=== PATIENT | male | born 1990 ===

== ENCOUNTER 2018-03-11 16:05 | Emergency (ER) | payer SELFPAY ==
[2018-03-11 16:14] VITALS: BP 149/90; PULSE 90; RESP 18; TEMP 98.3; O2SAT 99
[2018-03-11] MEDS ORDERED: Alum-Mag Hydrox-Simethicone Susp (30 mL) PO STA (16:48)
--- NOTE | 2018-03-11 16:49 | C.PDOC ---
History Of Present Illness 27 year old male presents to the ED for evaluation of abdominal colic and vomiting which began this morning. Patient admits he was out drinking 5-7 beers with his friends last night. At around 0300, patient are mozzarella sticks and Nepalese fries. Patient reports seeing some scant blood tinge at the end of his vomitus. Patient reports he has experienced similar symptoms in the past. Patient reports he does not intake alcohol regularly; he drinks around 4-5 beers on weekend nights only. Patient denies fever, chills. Time Seen by Provider: 03/11/18 16:36 Chief Complaint (Nursing): Back Pain History Per: Patient History/Exam Limitations: no limitations Onset/Duration Of Symptoms: Hrs Current Symptoms Are (Timing): Still Present Quality Of Discomfort: "Pain" Past Medical History Reviewed: Historical Data, Nursing Documentation, Vital Signs Vital Signs: Last Vital Signs Temp 98.3 F 03/11/18 16:12 Pulse 90 03/11/18 16:12 Resp 18 03/11/18 16:12 BP 149/90 03/11/18 16:12 Pulse Ox 99 03/11/18 16:12 - Medical History PMH: No Chronic Diseases Surgical History: Appendectomy Family History: States: Unknown Family Hx - Social History Hx Alcohol Use: No Hx Substance Use: No Review Of Systems Constitutional: Negative for: Fever, Chills Gastrointestinal: Positive for: Vomiting, Other (abdominal colic ) Physical Exam - Physical Exam Appears: Non-toxic, No Acute Distress Skin: Normal Color, Warm, Dry Head: Atraumatic, Normacephalic Eye(s): bilateral: Normal Inspection Oral Mucosa: Moist Neck: Supple Chest: Symmetrical, No Deformity, No Tenderness Cardiovascular: Rhythm Regular, No Murmur Respiratory: Normal Breath Sounds, No Rales, No Rhonchi, No Wheezing Gastrointestinal/Abdominal: Soft, No Tenderness (epigastric ), No Guarding, No Rebound, Other (obese, dull to percussion. negative Barker's sign or McBurney's point tenderness ) Extremity: Normal ROM, Capillary Refill (less than 2 seconds ) Neurological/Psych: Oriented x3, Normal Speech, Normal Cognition ED Course And Treatment O2 Sat by Pulse Oximetry: 99 (on RA ) Pulse Ox Interpretation: Normal Progress Note: Maalox PO and Pepcid PO given. Medical Decision Making Medical Decision Making: indigestion and constipation colic NOT heavy drinking LOW susp pancreatitis defer w/u with informed consent for empiric tx Disposition Doctor Will See Patient In The: Office Counseled Patient/Family Regarding: Studies Performed, Diagnosis - Disposition Referrals: [facility] [Outside] [facility] [Outside] [facility] [Outside] [facility] [Outside] Disposition: HOME/ ROUTINE Disposition Time: 16:49 Condition: GOOD Additional Instructions: bland diet pepcid 20 mg @ night to lower stomach acid Gatorade/Water Instructions: Dyspepsia (DC) Forms: [facility] (Thai) - Clinical Impression Clinical Impression: Indigestion - Scribe Statement The provider has reviewed the documentation as recorded by the Scribe (Laura Paiz) Provider Attestation: All medical record entries made by the Scribe were at my direction and personally dictated by me. I have reviewed the chart and agree that the record accurately reflects my personal performance of the history, physical exam, medical decision making, and the department course for this patient. I have also personally directed, reviewed, and agree with the discharge instructions and disposition.
[2018-03-11] MEDS ORDERED: Aluminum Hydroxide/Magnesium Hydroxide Susp (30 mL) ONE (16:57)
== END 2018-03-11 17:23 | disposition home or self-care (01) ==
LOC: C.ER 16:05
DX: K30 Functional dyspepsia (principal)

== ENCOUNTER 2018-03-12 14:39 | Emergency (ER) | payer SELFPAY ==
[2018-03-12 14:45] VITALS: O2SAT 100
[2018-03-12] MEDS ORDERED: Sodium Chloride 0.9% 1,000 ML IV ONE (15:03)
[2018-03-12] MEDS ORDERED: Sodium Chloride 0.9% 1,000 ML ONE (15:11)
[2018-03-12 15:27] LABS: BASO # 0.1 K/uL (0.0-0.2); BASO % 1.3 % (0.0-2.0); EOS # 0.2 K/uL (0.0-0.7); EOS % 2.7 % (0.0-4.0); HEMOGLOBIN 17.9 g/dL (12.0-18.0); LYMPH # 3.2 K/uL (1.0-4.3); LYMPH % 38.4 % (20.0-40.0); MEAN CELL VOLUME 85.6 fL (80.0-94.0); MEAN CORPUSCULAR HEMOGLOBIN 29.7 pg (27.0-31.0); MEAN CORPUSCULAR HGB CONC 34.7 g/dL (33.0-37.0); MEAN PLATELET VOLUME 9.9 fL (7.2-11.7); MONO # 0.8 K/uL (0.0-0.8); MONO % 9.4 % (0.0-10.0); NEUT # 4.1 K/uL (1.8-7.0); NEUT % 48.2 % (50.0-75.0); NRBC % 0.1 % (0.0-2.0); RBC 6.03 Mil/uL (4.40-5.90); RED CELL DISTRIBUTION WIDTH 12.7 % (11.5-14.5); WHITE BLOOD COUNT 8.4 K/uL (4.8-10.8)
[2018-03-12 15:34] LABS: SQUAMOUS EPITHIAL < 1 /hpf (0-5); URINE BILIRUBIN NEGATIVE (NEGATIVE); URINE BLOOD 2+ (NEGATIVE); URINE CALCIUM OXALATE CRYSTALS OCC /hpf (<OCC); URINE CLARITY Clear (Clear); URINE COLOR Yellow (YELLOW); URINE GLUCOSE (UA) NORMAL (Normal); URINE LEUKOCYTE ESTERASE NEG Leu/uL (Negative); URINE PROTEIN 1+ mg/dL (NEGATIVE); URINE UROBILINOGEN NORMAL mg/dL (0.2-1.0)
[2018-03-12 15:39] LABS: ALB/GLOB RATIO 1.6 (1.0-2.1); ALBUMIN 4.8 g/dL (3.5-5.0); ALT/SGPT 95 U/L (21-72); AST/SGOT 73 U/L (17-59); BLOOD UREA NITROGEN 11 mg/dL (9-20); CALCIUM 9.6 mg/dl (8.6-10.4); GFR NON-AFRICAN AMERICAN > 60; LIPASE 31 U/L (23-300)
--- NOTE | 2018-03-12 16:34 | CT ---
Date of service: 03/12/2018 PROCEDURE: CT Abdomen and Pelvis without intravenous contrast HISTORY: left flank pain COMPARISON: None. TECHNIQUE: CT scan of the abdomen and pelvis was performed without administration of intravenous contrast. Oral contrast was not administered. Coronal and sagittal reformatted images were obtained. . Radiation dose: Total exam DLP = 554.36 mGy-cm. This CT exam was performed using one or more of the following dose reduction techniques: Automated exposure control, adjustment of the mA and/or kV according to patient size, and/or use of iterative reconstruction technique. FINDINGS: LOWER THORAX: The visualized lungs are clear. LIVER: Fatty liver. No intrahepatic ductal dilatation. GALLBLADDER AND BILE DUCTS: Partially contracted. No biliary dilatation PANCREAS: Normal in size. No ductal dilatation. SPLEEN: Normal in size. ADRENALS: Normal in size. No discrete nodule. KIDNEYS AND URETERS: Both kidneys are normal in size. There is a 3 mm nonobstructing stone in the right lower pole. No hydronephrosis. There is a 5 mm obstructing stone in the left distal ureter proximal to the UV junction with proximal hydroureteronephrosis, mild edema of the left kidney and perinephric fat stranding. VASCULATURE: No aortic aneurysm. No aortic atherosclerotic calcification or mural plaque present. BOWEL: The small bowel loops are normal in caliber. There is large amount of stool in the colon. No bowel dilatation or wall thickening. No bowel obstruction. APPENDIX: Normal appendix. PERITONEUM: No free fluid. No free air. LYMPH NODES: No enlarged lymph nodes. BLADDER: Partially distal and grossly normal in appearance. REPRODUCTIVE: The prostate gland is normal in size. BONES: No acute fracture. Within normal limits for the patient's age. Small area of sclerosis in the right intertrochanteric region is statistically most compatible with a bone island. OTHER FINDINGS: None. IMPRESSION: 1. Mild left obstructive uropathy resulting from a 5 mm stone in the distal ureteral proximal to the UV junction. 2. 3 mm nonobstructing stone in the lower pole of the right kidney. 3. Fatty liver.
--- NOTE | 2018-03-12 16:53 | C.PDOC ---
History Of Present Illness 27 year old presents to the ED c/o left flank pain since yesterday. patient states pain started in back and radiated to left abdominal side. vomit x1. Patient denies cp, sob, diarrhea, fever or hematuria. Time Seen by Provider: 03/12/18 14:48 Chief Complaint (Nursing): Male Genitourinary History Per: Patient History/Exam Limitations: no limitations Onset/Duration Of Symptoms: Days (2) Severity: Moderate Quality Of Discomfort: Sharp Past Medical History Vital Signs: Last Vital Signs Temp 97.8 F 03/12/18 14:43 Pulse 75 03/12/18 14:43 Resp 24 03/12/18 14:43 BP 158/89 H 03/12/18 14:43 Pulse Ox 100 03/12/18 14:43 Surgical History: Appendectomy Family History: States: Unknown Family Hx - Social History Hx Alcohol Use: No Hx Substance Use: No - Immunization History Hx Tetanus Toxoid Vaccination: No Hx Influenza Vaccination: No Hx Pneumococcal Vaccination: No Review Of Systems Except As Marked, All Systems Reviewed And Found Negative. Gastrointestinal: Positive for: Nausea, Vomiting, Abdominal Pain Genitourinary: Negative for: Dysuria, Frequency, Hematuria Skin: Negative for: Rash Physical Exam - Physical Exam Appears: Well, Non-toxic Skin: Normal Color, Warm Head: Atraumatic Eye(s): bilateral: Normal Inspection Nose: Normal Oral Mucosa: Moist Tongue: Normal Appearing Throat: Normal Neck: Normal Lymphatic: Deferred Chest: Symmetrical Cardiovascular: Rhythm Regular Respiratory: Normal Breath Sounds Gastrointestinal/Abdominal: Normal Exam, Bowel Sounds, Soft, No Tenderness Back: CVA Tenderness (left side) ED Course And Treatment - Laboratory Results Result Diagrams: 03/12/18 15:21 03/12/18 15:21 O2 Sat by Pulse Oximetry: 100 Medical Decision Making Medical Decision Making: Labs and CT reviewed with patient. patient to be discharged with Rx and follow up instructions. Disposition - Disposition Referrals: Alexei King MD [Staff Provider] - Disposition: HOME/ ROUTINE Disposition Time: 16:40 Condition: IMPROVED Additional Instructions: CHERRY GUZMAN, thank you for letting us take care of you today. The emergency medical care you received today was directed at your acute symptoms. If you were prescribed any medication, please fill it and take as directed. It may take several days for your symptoms to resolve. Return to the Emergency Department if your symptoms worsen, do not improve, or if you have any other problems. Please contact your doctor or call one of the physicians/clinics you have been referred to that are listed on the Patient Visit Information form that is included in your discharge packet. Bring any paperwork you were given at discharge with you along with any medications you are taking to your follow up visit. Our treatment cannot replace ongoing medical care by a primary care provider outside of the emergency department. Thank you for allowing the [facility] team to be part of your care today. Follow up with Dr. Martines in 1-2 days for re-evaluation and further management. Prescriptions: Ciprofloxacin [Cipro] 500 mg PO BID #14 tab Ibuprofen [Motrin Tab] 800 mg PO Q6 PRN #20 tab PRN Reason: Pain, Moderate (4-7) Tamsulosin [Flomax] 0.4 mg PO DAILY #7 cap Instructions: Kidney Stones (DC), How to Strain Your Urine Forms: [employer] [facility] (Serbian) - Clinical Impression Clinical Impression: Kidney stone
[2018-03-12 17:12] VITALS: BP 126/82; PULSE 76; RESP 18; TEMP 98.1
== END 2018-03-12 17:12 | disposition home or self-care (01) ==
LOC: C.ER 14:39
DX: N20.0 Calculus of kidney (principal)
CPT/HCPCS: 74176; 80053; 81001; 83690; 85025; 87086; 96361; 96374; 96375; 99284; J1885; J2405; J7030